=== PATIENT | female | born 1945 | race Caucasian/White ===

== ENCOUNTER 2025-03-29 11:45 | Emergency (ER) | payer SELFPAY ==
[2025-03-29 12:04] VITALS: BP 174/96
[2025-03-29 14:00] VITALS: BP 155/84
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
[2025-03-29] MEDS: NSS 1000 IV (14:51)
[2025-03-29 14:53] LABS: Hematocrit 41.8 % (37.0-47.0); Hemoglobin 14.1 g/dL (12.0-16.0); Mean Corp Hgb Conc. 33.7 g/dL (33.0-37.0); Mean Corpuscular Volume 89.7 fL (81.0-99.0); Nucleated Red Blood Cells % 0 %; Platelet Count 198 10^3/uL (130-400); Red Cell Dist. Width 12.5 % (11.5-14.5)
[2025-03-29 15:12] LABS: ALT (SGPT) 26 U/L (0-35); AST (SGOT) 41 U/L (14-36); Albumin 4.9 g/dl (3.5-5.0); Alkaline Phosphatase 104 U/L (38-126); Blood Urea Nitrogen 16 mg/dl (7-17); Calcium 9.5 mg/dl (8.4-10.2); Carbon Dioxide 29 mmol/L (22-30); Chloride 105 mmol/L (98-107); Glucose 92 mg/dl (70-99); Potassium 3.9 mmol/L (3.5-5.1); Sodium 142 mmol/L (135-145); Total Protein 7.6 g/dl (6.3-8.2); eGFR > 60.00
[2025-03-29] MEDS: ADACEL 0.5 ML IM (16:36)
[2025-03-29] MEDS: TYLENOL 650 MG PO (16:44)
[2025-03-29] MEDS: TORADOL 15 MG IV (17:46)
[2025-03-29 18:00] VITALS: BP 129/95
== END 2025-03-29 18:32 | disposition home or self-care (01) ==
LOC: EMR 11:45
PROVIDERS: Nurse Practitioner; EMERGENCY PHYSICIAN Emergency Medicine; FAMILY PHYSICIAN Family Medicine
DX: S22.32XA Fracture of one rib, left side, initial encounter for closed fracture (principal); S80.12XA Contusion of left lower leg, initial encounter; S80.11XA Contusion of right lower leg, initial encounter; S50.312A Abrasion of left elbow, initial encounter; R10.9 Unspecified abdominal pain; V49.40XA Driver injured in collision with unspecified motor vehicles in traffic accident, initial encounter; Z79.82 Long term (current) use of aspirin; Z23 Encounter for immunization
CPT/HCPCS: 96374; 96361; 99284; 90471; 70450; 71111; 71260; 72125; 73590; 74177; 80053; 85025; 90715; Q9967